=== PATIENT | male | born 1990 | race Asian ===

== ENCOUNTER 2017-04-08 17:42 | Outpatient (CLI) | payer SELFPAY | END 2017-04-08 17:43 | disposition EMS.NT | LOC: EMS 17:42 | PROVIDERS: ATTEND Surgery | DX: Z04.1 Encounter for examination and observation following transport accident (principal); V53.5XXA Driver of pick-up truck or van injured in collision with car, pick-up truck or van in traffic accident, initial encounter; Y92.413 State road as the place of occurrence of the external cause ==

== ENCOUNTER 2018-05-01 23:09 | Emergency (ER) | payer OTHER ==
--- NOTE | 2018-05-02 00:10 | ED Physician Documentation ---
PD HPI HEAD INJURY - Stated complaint Stated Complaint: HEAD PX - Chief complaint Chief Complaint: Trauma Hd/Nk - History obtained from History obtained from: Patient - History of Present Illness Mechanism of head injury: Blow Where head injury occurred: Home Timing - onset: Enter time (22:15), Today Location of injury: Back Associated symptoms: No: LOC, AMS, Amnesia, Nausea / vomiting, Neck pain Recently seen: Not recently seen - Additional information Additional information: was exiting shed on his property when a piece of wood on the structure fell and struck his head. denies RUBIO except for mild focal discomfort (localized to injury site). his chief concern is whether the wound needs stitches. Review of Systems Eyes: reports: Reviewed and negative Skin: reports: Laceration (s) Musculoskeletal: denies: Neck pain Neurologic: reports: Head injury. denies: Altered mental status, Headache, LOC PD PAST MEDICAL HISTORY - Past Medical History Past Medical History: No Cardiovascular: None Respiratory: None Neuro: None Endocrine/Autoimmune: None GI: None : None HEENT: None Psych: None Musculoskeletal: None Derm: None Other Past Medical History: L ANKLE FRACTURE/SURGERY... - Past Surgical History Past Surgical History: Yes General: Other Ortho: Other - Allergies Allergies/Adverse Reactions: Allergies Allergy/AdvReac Type Severity Reaction Status Date / Time No Known Drug Allergies Allergy Verified 05/01/18 23:19 - Social History Does the pt smoke?: Yes Smoking Status: Current every day smoker Does the pt drink ETOH?: Yes Does the pt have substance abuse?: No - Immunizations Immunizations are current?: Yes - POLST Patient has POLST: No PD ED PE NORMAL - Vitals Vital signs reviewed: Yes - General General: Alert and oriented X 3, No acute distress, Well developed/nourished - Neck Neck: No bony TTP - Neuro Neuro: Alert and oriented X 3, crystal flat grinder 2-12 intact, No motor deficit, No sensory deficit, Normal speech Eye Opening: Spontaneous Motor: Obeys Commands Verbal: Oriented GCS Score: 15 PD ED PE EXPANDED - HEENT HEENT Visual: 1 - laceration (superficial linear laceration, 2.5 cm length) Results - Vitals Vitals: Vital Signs - 24 hr 05/01/18 05/01/18 05/01/18 23:15 23:25 23:32 Temperature 36.6 C Heart Rate 117 H 115 H Respiratory 17 17 17 Rate Blood Pressure 185/110 H 180/110 H O2 Saturation 97 97 05/02/18 00:27 Temperature Heart Rate 106 H Respiratory 17 Rate Blood Pressure 153/95 H O2 Saturation 97 Oxygen O2 Source Room air PD MEDICAL DECISION MAKING - ED course Complexity details: considered differential, d/w patient ED course: wound is too superficial to benefit from repair. no indications for emergent testing including CT head - Sepsis Event Vital Signs: Vital Signs - 24 hr 05/01/18 05/01/18 05/01/18 23:15 23:25 23:32 Temperature 36.6 C Heart Rate 117 H 115 H Respiratory 17 17 17 Rate Blood Pressure 185/110 H 180/110 H O2 Saturation 97 97 05/02/18 00:27 Temperature Heart Rate 106 H Respiratory 17 Rate Blood Pressure 153/95 H O2 Saturation 97 Oxygen O2 Source Room air Departure - Departure Disposition: 01 Home, Self Care Clinical Impression: Contusion of head Condition: Good Instructions: ED Head Injury Closed Sleep Mon Discharge Date/Time: 05/02/18 00:30
[2018-05-02] MEDS ORDERED: BACITRACIN OINT TOP STA (00:19)
[2018-05-02 00:28] VITALS: BP 153/95
[2018-05-02] MEDS ORDERED: BACITRACIN OINT TOP ONE (00:30)
== END 2018-05-02 00:30 | disposition home or self-care (01) ==
LOC: ED 23:09
DX: S01.01XA Laceration without foreign body of scalp, initial encounter (principal); S00.03XA Contusion of scalp, initial encounter; W20.8XXA Other cause of strike by thrown, projected or falling object, initial encounter; Y92.008 Other place in unspecified non-institutional (private) residence as the place of occurrence of the external cause; F17.200 Nicotine dependence, unspecified, uncomplicated
CPT/HCPCS: 99282; 99283; A9270

== ENCOUNTER 2021-05-14 18:24 | Outpatient (CLI) | payer OTHER | END 2021-05-14 18:25 | disposition home or self-care (01) | LOC: LAB.S 18:24 | PROVIDERS: ATTEND Specialist | DX: C18.2 Malignant neoplasm of ascending colon (principal) | CPT/HCPCS: 36415; 82378 ==

== ENCOUNTER 2021-08-15 14:26 | Outpatient (CLI) | payer OTHER ==
[2021-08-15 15:05] LABS: BASOPHILS # (AUTO) 0.1 10^3/uL (0.0-0.1); BASOPHILS % (AUTO) 0.8 %; EOSINOPHILS # (AUTO) 0.2 10^3/uL (0.0-0.7); EOSINOPHILS % (AUTO) 2.4 %; HCT - HEMATOCRIT 35.6 % (42.0-52.0); HGB - HEMOGLOBIN 11.2 g/dL (14.0-18.0); LYMPHOCYTES # (AUTO) 1.7 10^3/uL (1.5-3.5); LYMPHOCYTES % (AUTO) 27.1 %; MEAN CORPUSCULAR HEMOGLOBIN 24.3 pg (27.0-31.0); MEAN CORPUSCULAR HGB CONC 31.5 g/dL (32.0-36.0); MEAN CORPUSCULAR VOLUME 77.4 fL (80.0-94.0); MEAN PLATELET VOLUME 9.9 fL (7.4-11.4); MONOCYTES # (AUTO) 0.4 10^3/uL (0.0-1.0); MONOCYTES % (AUTO) 5.8 %; NEUTROPHILS # (AUTO) 3.9 10^3/uL (1.5-6.6); NEUTROPHILS % (AUTO) 63.4 %; PLT - PLATELET COUNT 302 10^3/uL (130-450); RED CELL DISTRIBUTION WIDTH 17.5 % (12.0-15.0); WHITE BLOOD COUNT 6.2 x10^3/uL (4.8-10.8)
[2021-08-15 15:25] LABS: ALBUMIN 4.6 g/dL (3.2-5.5); ALBUMIN/GLOBULIN RATIO 1.7 (1.0-2.2); BILIRUBIN,TOTAL 0.4 mg/dL (0.2-1.0); CALCIUM 9.4 mg/dL (8.5-10.3); CREATININE 0.8 mg/dL (0.6-1.2); POTASSIUM 4.2 mmol/L (3.5-5.0); TOTAL PROTEIN 7.3 g/dL (6.7-8.2)
== END 2021-08-15 14:27 | disposition home or self-care (01) ==
LOC: LAB 14:26
PROVIDERS: ATTEND Internal Medicine Hematology & Oncology
DX: C18.2 Malignant neoplasm of ascending colon (principal)
CPT/HCPCS: 36415; 80053; 82378; 85025

== ENCOUNTER 2021-09-04 14:25 | Outpatient (CLI) | payer OTHER ==
[2021-09-04] MEDS ORDERED: IOVERSOL 320 100 ML VIAL IVP ONE ×2 (14:41→16:01)
[2021-09-04] MEDS ORDERED: IOVERSOL 320 50 ML VIAL ONE (14:41)
[2021-09-04] MEDS ORDERED: IOVERSOL 320 50 ML VIAL PO ONE (16:00)
--- NOTE | 2021-09-04 16:46 | CT Report ---
PROCEDURE: CHEST W INDICATIONS: COLON CA CONTRAST: IV CONTRAST: Optiray 320 ml: 100 PO CONTRAST: Optiray 320 ml50 TECHNIQUE: After the administration of intravenous contrast, 1 mm axial images were acquired from the pulmonary apices through the posterior costophrenic angles. Axial 5 mm soft tissue kernel reconstructions were performed as well as 8 mm axial MIP and coronal and sagittal 5 mm reformations. For radiation dose reduction, the following was used: automated exposure control, adjustment of mA and/or kV according to patient size. COMPARISON: None. FINDINGS: CT CHEST: Thyroid: Homogeneous. Vasculature: The thoracic aorta and arch vasculature have a normal contrasted appearance and are norm al size and contour. No evidence for dissection. A right jess catheter is seen with tip in SVC. Heart: No cardiomegaly or significant pericardial effusion. Mediastinum: No pathologic lymph node enlargement by size criteria. Lung/pleura: No pleural effusion, consolidation, or pneumothorax. An azygous fissure is noted. Tracheobronchial tree: Patent. Bones: No significant abnormality. Chest wall: The chest wall and axilla are within normal limits. IMPRESSION: 1.No significant abnormality. Reviewed by: Miguel Boyer MD on 09/04/2021 4:44 PM PDT Approved by: Miguel Boyer MD on 09/04/2021 4:44 PM PDT Station ID: [id number]
--- NOTE | 2021-09-04 16:52 | CT Report ---
PROCEDURE: Abdomen/Pelvis W INDICATIONS: COLON CA CONTRAST: IV CONTRAST: Optiray 320 ml: 100 PO CONTRAST: Optiray 320 ml50 TECHNIQUE: After the administration of IV and oral contrast, 5 mm thick sections acquired from the diaphragms to the symphysis. 5 mm thick coronal and sagittal reformats were acquired. For radiation dose reducti on, the following was used: automated exposure control, adjustment of mA and/or kV according to davin ent size. COMPARISON: None. FINDINGS: Gallbladder: The gallbladder is distended with a smooth thin wall. Biliary tree: No intra-or extrahepatic biliary ductal dilatation. Liver: The liver demonstrates normal enhancement, size, and contour. Spleen: Normal enhancement, size and morphology is seen. A splenule is noted. Pancreas: Normal morphology without masses or inflammatory changes. Adrenals: Normal size without masses. Kidneys/ureters: Normal size and morphology. No solid masses or hydronephrosis. Vasculature: No evidence of aneurysm or other significant vascular pathology. Lymphatic system: No pathologic enlargement by size criteria. GI/mesentery: No evidence of intestinal obstruction. An ileocolonic anastomosis is seen in the right abdomen. Peritoneum/Retroperitoneum: No free intraperitoneal gas. A 2.7 x 2.6 x 2.5 cm contrast enhancing, sof t tissue mass is seen in the ventral omentum. Urinary bladder: The urinary bladder is distended with a smooth thin wall. Pelvic organs: No significant abnormality. Bones/soft tissues: No acute osseous abnormality. A 1.4 x 1.4 x 1.1 cm contrast enhancing, soft tissu e mass is seen in the ventral subcutaneous fat IMPRESSION: 1.2 contrast enhancing masses in the ventral subcutaneous fat and omentum, concerning for neoplastic/ metastatic nodules. Consider short-term interval follow-up versus percutaneous biopsy for further mary jane luation. Reviewed by: Miguel Boyer MD on 09/04/2021 4:51 PM PDT Approved by: Miguel Boyer MD on 09/04/2021 4:51 PM PDT Station ID: [id number]
== END 2021-09-04 14:26 | disposition home or self-care (01) ==
LOC: DI 14:25
PROVIDERS: ATTEND Internal Medicine
DX: C18.9 Malignant neoplasm of colon, unspecified (principal); R19.00 Intra-abdominal and pelvic swelling, mass and lump, unspecified site
CPT/HCPCS: 71260; 74177; Q9967

== ENCOUNTER 2021-11-06 11:16 | Outpatient (CLI) | payer OTHER ==
[2021-11-06] MEDS ORDERED: IOPAMIDOL-300 100 ML VIAL ONE (11:29)
[2021-11-06] MEDS ORDERED: IOPAMIDOL-300 50 ML VIAL ONE (11:29)
[2021-11-06] MEDS ORDERED: IOPAMIDOL-300 50 ML VIAL PO ONE (13:34)
[2021-11-06] MEDS ORDERED: IOPAMIDOL-300 100 ML VIAL IVP ONE (13:34)
--- NOTE | 2021-11-06 14:52 | CT Report ---
PROCEDURE: Abdomen/Pelvis W INDICATIONS: COLON CANCER CONTRAST: IV CONTRAST: Isovue 300 ml: 100 PO CONTRAST: Isovue 300 ml50 TECHNIQUE: After the administration of oral and intravenous contrast, 5 mm thick sections acquired from the diap hragms to the symphysis. 5 mm thick coronal and sagittal reformats were acquired. For radiation dos e reduction, the following was used: automated exposure control, adjustment of mA and/or kV accordin g to patient size. COMPARISON: Same day CT chest. CT abdomen and pelvis 09/04/2021. FINDINGS: Image quality: Excellent. ABDOMEN: Lung bases: Please see separately dictated same day CT chest. Solid organs: Liver and spleen are normal in size and enhancement. Tiny hypodense focus in the infer ior right lobe of the liver is unchanged. This could represent a benign cyst. Punctate calcified gran uloma in the right lobe of liver. Small splenule. Gallbladder is decompressed. Biliary system is non dilated. Pancreas enhances normally. No adrenal nodules. Kidneys demonstrate normal size and enha ncement, without hydronephrosis. Peritoneum and bowel: Suture material at the region of the cecum. No small bowel obstruction. No asci aidan. No pneumoperitoneum. Nodes and vessels: No retroperitoneal adenopathy. Aorta and inferior vena cava are normal in size. Miscellaneous: Intra-abdominal/omental rim enhancing lesion measuring 6.1 x 6 cm, (3/62), previously 3 x 2.9 cm on 09/04/2021. Subcutaneous rim-enhancing lesion measuring 3.5 x 3 cm, (3/58), previously 1.6 x 1.4 cm. This appears to extend into the rectus musculature. These lesions are in close proximity but do not appear to be contiguous. No significant surrounding inflammatory change. PELVIS: Genitourinary: Bladder is decompressed. Miscellaneous: No inguinal hernias or adenopathy. Bones: No suspicious bony lesions. No vertebral body compression fractures. IMPRESSION: 1. Midline rectus/omental rim-enhancing lesion measuring 6.1 cm is increased in size. 2. Midline subcutaneous abdominal wall rim-enhancing lesion measuring 3.5 cm is increased in size. 3. No free fluid. Given the increase in size of these lesions metastatic disease is suspected. Results were communicated to Gabrielle Hendrix RN at 11/06/2021 2:44 PM PST. Reviewed by: Esteban Og MD on 11/06/2021 2:50 PM PST Approved by: Esteban Og MD on 11/06/2021 2:50 PM PST Station ID: [id number]
--- NOTE | 2021-11-06 15:28 | CT Report ---
PROCEDURE: CHEST W INDICATIONS: COLON CANCER CONTRAST: IV CONTRAST: Isovue 300 ml: 100 PO CONTRAST: Isovue 300 ml50 TECHNIQUE: After the administration of intravenous contrast, 1 mm axial images were acquired from the pulmonary apices through the posterior costophrenic angles. Axial 5 mm soft tissue kernel reconstructions were performed as well as 8 mm axial MIP and coronal and sagittal 5 mm reformations. For radiation dose reduction, the following was used: automated exposure control, adjustment of mA and/or kV according to patient size. COMPARISON: 09/04/2021 FINDINGS: Image quality: Excellent. Lungs and pleura: No new nodules. No acute air space opacities. No pleural effusions or pneumothora x. Central and peripheral airways are patent and normal in caliber. Mild bilateral lower lobe bronc hial wall thickening. Mediastinum: Heart size is normal. No pericardial effusion. No mediastinal or hilar adenopathy by size criteria. Thoracic aorta and central pulmonary arteries are normal in size. Esophagus is khadra l in caliber. No hiatal hernia. Bones and chest wall: Right chest Mediport. No suspicious bony lesions. No vertebral body compressi on fractures. No axillary or supraclavicular adenopathy by size criteria. The thyroid is normal in size and there are no incidental findings.. Abdomen: Please see separately dictated report of the study performed the same day.. IMPRESSION: 1. No evidence of metastatic disease in the chest. 2. Mild bilateral lower lobe bronchial wall thickening may indicate bronchitis. Correlate clinically. Reviewed by: Radha Aguirre MD on 11/06/2021 3:26 PM PST Approved by: Radha Aguirre MD on 11/06/2021 3:26 PM PST Station ID: [id number]
== END 2021-11-06 11:17 | disposition home or self-care (01) ==
LOC: DI 11:16
PROVIDERS: ATTEND Internal Medicine
DX: C18.2 Malignant neoplasm of ascending colon (principal); C18.8 Malignant neoplasm of overlapping sites of colon; C18.9 Malignant neoplasm of colon, unspecified
CPT/HCPCS: 71260; 74177; Q9967

== ENCOUNTER 2022-01-02 15:14 | Outpatient (CLI) | payer OTHER ==
[2022-01-02] MEDS ORDERED: IOVERSOL 320 100 ML VIAL IVP ONE ×2 (15:28→16:49)
[2022-01-02] MEDS ORDERED: IOPAMIDOL-300 50 ML VIAL ONE (15:28)
[2022-01-02] MEDS ORDERED: IOPAMIDOL-300 50 ML VIAL PO ONE (16:49)
--- NOTE | 2022-01-02 17:09 | CT Report ---
PROCEDURE: Abdomen/Pelvis W INDICATIONS: COLON CA CONTRAST: IV CONTRAST: Optiray 320 ml: 100 PO CONTRAST: Isovue 300 ml50 TECHNIQUE: After the administration of oral and intravenous contrast, 5 mm thick sections acquired from the diap hragms to the symphysis. 5 mm thick coronal and sagittal reformats were acquired. For radiation dos e reduction, the following was used: automated exposure control, adjustment of mA and/or kV accordin g to patient size. COMPARISON: 11/06/2021. FINDINGS: Image quality: Excellent. ABDOMEN: Lung bases: Lung bases are clear. Heart size is normal. Solid organs: Liver and spleen are normal in size and enhancement. Gallbladder is unremarkable. Bi liary system is non dilated. Pancreas enhances normally. No adrenal nodules. Kidneys demonstrate n ormal size and enhancement, without hydronephrosis. Peritoneum and bowel: Remote partial right colectomy. Bowel loops demonstrate normal wall thickness a nd caliber. No free fluid or air. Nodes and vessels: No retroperitoneal or mesenteric adenopathy by size criteria. Aorta and inferior vena cava are normal in size. Miscellaneous: No ventral hernias. There is significant interval increase in the size of a centrall y necrotic malignant mass in the midline in the pelvis involving the anterior abdominal wall musculat ure and extending into the peritoneal cavity. On previous image 62/3 it measured 6 x 6.1 cm. On curre nt image 58/3 it measures 8.8 x 9.0 cm. A subjacent subcutaneous necrotic mass has also significantly increased in size. On previous image 58/3 it measured 3.5 x 3.0 cm. On current image 53/3 it measure s 5.0 x 4.8 cm. PELVIS: Genitourinary: Bladder wall thickness is normal. Miscellaneous: No inguinal hernias or adenopathy. Bones: No suspicious bony lesions. No vertebral body compression fractures. IMPRESSION: Significant interval growth on short-term follow-up of 2 centrally necrotic masses, one of which is present in the peritoneal cavity and involves the anterior abdominal wall. The other is c entered in the central subcutaneous fat. Reviewed by: Reg Braga MD on 01/02/2022 5:07 PM PST Approved by: Reg Braga MD on 01/02/2022 5:07 PM PST Station ID: [id number]
--- NOTE | 2022-01-02 17:24 | CT Report ---
PROCEDURE: CT chest with contrast INDICATIONS: COLON CA CONTRAST: IV CONTRAST: Optiray 320 ml: 100 PO CONTRAST: Isovue 300 ml50 TECHNIQUE: After the administration of intravenous contrast, 1 mm axial images were acquired from the pulmonary apices through the posterior costophrenic angles. Axial 5 mm soft tissue kernel reconstructions were performed as well as 8 mm axial MIP and coronal and sagittal 5 mm reformations. For radiation dose reduction, the following was used: automated exposure control, adjustment of mA and/or kV according to patient size. COMPARISON: None. FINDINGS: Image quality: Excellent. Lungs and pleura: No acute air space opacities. No pleural effusions or pneumothorax. Central and peripheral airways are patent and normal in caliber. Mediastinum: Heart size is normal. No pericardial effusion. No mediastinal or hilar adenopathy by size criteria. Thoracic aorta and central pulmonary arteries are normal in size. Esophagus is khadra l in caliber. No hiatal hernia. Bones and chest wall: No suspicious bony lesions. No vertebral body compression fractures. No axil pasha or supraclavicular adenopathy by size criteria. The thyroid is normal in size and there are no incidental findings.. Right-sided Port-A-Cath in place Abdomen: Visualized upper abdominal solid organs appear normal. Upper abdominal bowel loops are nor mal in caliber. IMPRESSION: Unremarkable CT of chest without evidence of metastatic disease Reviewed by: Jay eLe MD on 01/02/2022 4:23 PM [place] Approved by: Jay Lee MD on 01/02/2022 4:23 PM [place] Station ID: [id number]
== END 2022-01-02 15:15 | disposition home or self-care (01) ==
LOC: DI 15:14
PROVIDERS: ATTEND Internal Medicine
DX: C18.8 Malignant neoplasm of overlapping sites of colon (principal); C18.2 Malignant neoplasm of ascending colon; R19.09 Other intra-abdominal and pelvic swelling, mass and lump
CPT/HCPCS: 71260; 74177; Q9967

== ENCOUNTER 2024-02-11 08:00 | Outpatient (CLI) | payer OTHER | END 2024-02-11 23:59 | disposition home or self-care (01) | LOC: PC 08:00 | PROVIDERS: ATTEND Nurse Practitioner Adult Health | DX: Z51.5 Encounter for palliative care (principal); T81.31XD Disruption of external operation (surgical) wound, not elsewhere classified, subsequent encounter; Z85.038 Personal history of other malignant neoplasm of large intestine; G89.3 Neoplasm related pain (acute) (chronic); Z79.891 Long term (current) use of opiate analgesic; R63.5 Abnormal weight gain; M25.572 Pain in left ankle and joints of left foot; Z92.21 Personal history of antineoplastic chemotherapy; Z79.899 Other long term (current) drug therapy | CPT/HCPCS: 99215 ==

== ENCOUNTER 2024-03-17 15:40 | Outpatient (CLI) | payer OTHER | END 2024-03-17 23:59 | disposition home or self-care (01) | LOC: PC 15:40 | PROVIDERS: ATTEND Nurse Practitioner Adult Health | DX: Z51.5 Encounter for palliative care (principal); T82.868A Thrombosis due to vascular prosthetic devices, implants and grafts, initial encounter; M62.81 Muscle weakness (generalized); G89.3 Neoplasm related pain (acute) (chronic); C18.2 Malignant neoplasm of ascending colon | CPT/HCPCS: 99215 ==